=== PATIENT | male | born 1970 | race Asian ===

== ENCOUNTER 2019-11-10 19:31 | Emergency (ER) | payer BC ==
[~2019-11-10] VITALS: Ht 177.8 cm; Wt 84.0 kg
[2019-11-10 19:46] VITALS: Ht 177.8 cm; Wt 84.0 kg
[2019-11-10 20:53] LABS: BASOPHIL % 0.8 % (0-2); PLATELET COUNT 195 x10^3mcL (130-400); RED CELL DISTRIBUTION WIDTH 13.3 % (11.5-14.5)
[2019-11-10 20:55] LABS: CALCIUM 9.2 mg/dL (8.5-10.1); CARBON DIOXIDE 28.9 mmol/L (21-32); CHLORIDE SERUM 99 mmol/L (98-107); CREATININE SERUM 0.9 mg/dL (0.7-1.3); GFR1 > 60 mL/min; GLUCOSE SERUM 123 mg/dL (74-106); POTASSIUM SERUM 3.7 mmol/L (3.5-5.1); SODIUM SERUM 135 mmol/L (136-145)
[2019-11-10 21:00] LABS: ALBUMIN 3.9 g/dL (3.4-5.0); ALKALINE PHOSPHATASE 57 U/L (46-116); ALT/SGPT 79 U/L (16-63); BILIRUBIN TOTAL 0.5 mg/dL (0.20-1.00); TOTAL PROTEIN, SERUM 7.8 g/dL (6.4-8.2)
[2019-11-10 21:08] LABS: CHOLESTEROL 225 mg/dL (<200); CHOLESTEROL/HDL RATIO 7.5; HDL CHOLESTEROL 30 mg/dL (40-60); TRIGLYCERIDES 538 mg/dL (<150)
[2019-11-10 21:10] LABS: T3 TOTAL 1.19 ng/mL
[2019-11-10 21:30] LABS: AST/SGOT 46 U/L (15-37)
[2019-11-10 21:32] LABS: FREE T4 1.12 ng/dL (0.76-1.46); FREE THYROXINE INDEX 2.8 ug/dL (1.4-4.5); T4(THYROXINE) 7.8 ug/dL (4.7-13.3)
[2019-11-10 22:24] LABS: AMPHETAMINE QUAL UR NONE DETECTED (See below)
[2019-11-10 23:08] VITALS: BP 106/78
== END 2019-11-10 23:08 | disposition home or self-care (01) ==
LOC: ED 19:31
PROVIDERS: Emergency Medicine
DX: I10 Essential (primary) hypertension (principal)
CPT/HCPCS: 83880; 84439; Q0092